=== PATIENT | female | born 1960 | race Caucasian/White ===

== ENCOUNTER → 2020-11-24 | Outpatient (CLI) | payer BC ==
[~2020-11-24] MED LIST: ASP325T PO; ASPI-875 PO; CEPH500C PO; CTRZ10T PO; FLC1T; FLUT1DIS27; HAIR SKIN NAIL VIT PO; HYDR-3454 PO; LEVO25TA45 PO; LEVO50TA63; MELO-195 PO; MELO7.5T PO; MNTL10T PO; MULT1TAB53; NF-TYLARTH PO; OMEG1CAP51 PO; OMG1KC; PANT20TA2 PO; PNT40TEC PO; PSEU-123 PO; TAVIST; TRAZ150T42 PO; TRL10C90 TOP; ZLP10T; yaz
== END ==
LOC: CARD 13:33
PROVIDERS: ATTEND Family Medicine
DX: I35.8 Other nonrheumatic aortic valve disorders (principal)
CPT/HCPCS: 93306

== ENCOUNTER → 2021-06-12 | Outpatient (CLI) | payer BC ==
--- NOTE | 2021-06-12 14:48 | Diagnostic Imaging Report ---
INDICATION: Postmenopausal state. COMPARISON: None available. FINDINGS: AP Spine L1-L4: [BMD (g/cm2): 1.204] [T-Score: 0.0] [Z-Score: 1.3] [BMD Previous: NA] [BMD % Change: NA] LT Hip Neck: [BMD (g/cm2): 0.826] [T-Score: -1.5] [Z-Score: -0.2] LT Hip Total: [BMD (g/cm2):0.844] [T-Score:-1.3] [Z-Score: -0.3] [BMD Previous: NA] [BMD % Change: NA] RT Hip Neck: [BMD (g/cm2):0.754] [T-Score:-2.0] [Z-Score:-0.8] RT Hip Total: [BMD (g/cm2):0.824] [T-score:-1.5] [Z-Score:-0.5] [BMD Previous:NA] [BMD % Change:NA] *Indicates significant change from prior examination based on 95% confidence level. World Health Organization criteria for BMD interpretation classify patients as Normal (T-score at or above -1.0), Osteopenic (T-score between -1.0 and -2.5) or Osteoporotic (T-score at or below -2.5). LIMITATIONS AND MODIFICATION: None. FRACTURE RISK (FRAX SCORE): The ten year probability of (%): Major Osteoporotic Fracture: [9.9] Hip Fracture: [1.3] IMPRESSION: 1. Osteopenia (Low bone mass). 2. Baseline examination. 3. See below National Osteoporosis Foundation guidelines on when to potentially initiate pharmacologic therapy. Based on the National Osteoporosis Foundation Guidelines, pharmacologic treatment should be initiated in any of the following, unless clinical conditions suggest otherwise: * Any patient with prior fragility fracture of the hip or vertebrae. A spine fracture indicates 5X risk for subsequent spine fracture and 2X risk for subsequent hip fracture. * Osteoporosis (T-score <-2.5). * Postmenopausal women and men age 50 and older with low bone mass/osteopenia (T-score between -1.0 and -2.5) by DXA and 10-year major osteoporotic fracture greater than 20% or a 10-year probability of hip fracture greater than 3%. These fracture risks are supplied above in the FRAX score, if applicable. * Clinician judgement and/or patient preferences may indicate treatment for people with 10-year fracture probabilities above or below these levels. Dictated by: Dictated on workstation # [id number]
--- NOTE | 2021-06-12 16:22 | Diagnostic Imaging Report ---
PROCEDURE: US carotid duplex, bilateral. TECHNIQUE: Multiple real-time grayscale images were obtained over the carotid arteries in various projections, bilaterally. Additional spectral analysis and color Doppler duplex images were also obtained. INDICATION: Carotid bruit COMPARISON: None FINDINGS: Right carotid: There is minimal atherosclerosis in the right carotid bulb. There is no stenosis in the right carotid system. Carotid upstrokes are brisk. The vertebral artery is antegrade. Left carotid: There is minimal atherosclerosis in the left carotid bulb. There is no stenosis throughout the left carotid system. Carotid upstrokes are brisk. The vertebral artery is antegrade. Parameters based on the consensus panel Manjarrez-Scale and Doppler ultrasound criteria published February 2003, Radiology, Volume 229. DOPPLER (peak systolic velocity M/S Right Left CCA .864 .89 ICA Proximal .367 .666 ICA Mid .746 .781 ICA Distal .665 1.01 RATIO .86 1.13 ECA .64 .652 VERT .435 .768 Impression: 1. Minimal atherosclerosis in the carotid arteries with no hemodynamically significant stenosis. Dictated by: Dictated on workstation # [id number]
== END ==
LOC: RAD 14:30
PROVIDERS: ATTEND Nurse Practitioner Family
DX: M85.88 Other specified disorders of bone density and structure, other site (principal); I10 Essential (primary) hypertension; E78.5 Hyperlipidemia, unspecified; R09.89 Other specified symptoms and signs involving the circulatory and respiratory systems; Z78.0 Asymptomatic menopausal state
CPT/HCPCS: 77080; 93880

== ENCOUNTER → 2022-06-20 | Outpatient (CLI) | payer BC ==
--- NOTE | 2022-06-20 17:30 | Diagnostic Imaging Report ---
INDICATION: Shortness of air EXAMINATION: Two-view chest 06/20/2022 FINDINGS: Heart and pulmonary vasculature normal. There is blunting of the right costophrenic angle likely due to scar with adjacent linear scarring or atelectasis present. Remaining lungs clear. No effusions. No pneumothorax. IMPRESSION: 1. Chronic findings in the right lung base. Otherwise negative chest. Dictated by: Dictated on workstation # [id number]
== END ==
LOC: RAD 15:56
PROVIDERS: ATTEND Nurse Practitioner Family
DX: R05.9 Cough, unspecified (principal); R06.02 Shortness of breath
CPT/HCPCS: 71046